=== PATIENT | female | born 1990 | race African-American/Black ===

== ENCOUNTER 2016-04-13 12:13 | Emergency (ER) | payer OTHER ==
--- NOTE | 2016-04-13 13:30 | PROVIDER DOCUMENTATION ---
HPI-Musculoskeletal Pain/Inj - GENERAL Chief Complaint: Extremity Injury Stated Complaint: ARM INJURY/ SOB Time Seen by Provider: 04/13/16 12:49 Source: patient - HX OF PRESENT ILLNESS-MUSKULOSKELTAL Nature of Presenting Problem: Pt is a 25 y/o F c chief complaint of L shoulder pain p wrestling c her brother. pt states that she felt a pop in her shoulder and had immediate pain with reduced ROM. Pt denies any loss of sensation. On arrival, pt is holding her L arm c her R hand and preventing it from moving. On arrival, pt is in minimal distress. Review of Systems - Adult - REVIEW OF SYSTEMS - ADULT Constitutional: reports: no symptoms reported. denies: chills, fatique Eyes: reports: no symptoms reported. denies: blurred vision, double vision Ears, Nose, Mouth & Throat: reports: no symptoms reported. denies: ear pain, nose pain, throat pain Cardiovascular: reports: no symptoms reported. denies: chest pain, orthopnea Respiratory: reports: no symptoms reported. denies: cough, shortness of breath Gastrointestinal: reports: no symptoms reported. denies: abdominal pain, nausea Genitourinary: reports: no symptoms reported. denies: dysuria, frequent UTI's Musculoskeletal: reports: no symptoms reported. denies: joint pain, joint swelling Integumentary: reports: no symptoms reported. denies: itching, rash Neurological: reports: no symptoms reported. denies: numbness, paresthesia Psychiatric: reports: no symptoms reported. denies: anxiety, emotional problems Endocrine: reports: no symptoms reported. denies: cold intolerance, heat intolerance Hematologic/Lymphatic: reports: no symptoms reported. denies: blood clots, low blood count Allergic/Immunologic: reports: no symptoms reported. denies: allergic reactions , eczema All Other Systems: Reviewed and Negative Past History - Adult - PAST MEDICAL HISTORY-ADULT Review of Records: reports: Old Records Reviewed, Nursing Assessment Review, Medications Reviewed, Social history reviewed & non-contributory. Major Childhood Illnesses: reports: denies history Cardiovascular: reports: denies history Respiratory: reports: asthma Gastrointestinal: reports: denies history Obstetrical/Gynecological: reports: PID/STD (herpes), other ( 09/2014) Genitourinary: reports: denies history Musculoskeletal: reports: denies history Neurological: reports: Seizures/Epilepsy. 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) Endocrine/Immune: reports: denies history Other Conditions: reports: denies history - PRIOR SURGERIES/PROCEDURES Surgical/Procedure History: reports: , other (Barthalian cyst removal) - IMMUNIZATION STATUS Childhood Immunizations: See Nurse Assessment Flu Vaccine: See Nurse Assessment - FAMILY HISTORY Family History: reviewed, not pertinent - SOCIAL HISTORY Smoking: denies Substance Use: none/never Alcohol Use Frequency: never Living Situation: family Physical Exam-Injury Related - Physical Exam-Injury Related Initial Vital Signs Reviewed: Yes General Appearance: appears well, alert, no apparent distress Eyes: PERRL/EOMI, pink conjunctivae Head, Ears, Nose, Mouth & Throat: normocephalic/atraumatic, moist mucous membranes, normal ENT inspection Neck: non-tender, full range of motion, supple Respiratory: chest non-tender, lungs clear, normal breath sounds Cardiovascular: normal peripheral pulses, regular rate, rhythm, no edema Chest/Breast: deferred Abdominal Exam: normal bowel sounds, non tender, soft Lymphatic: no adenopathy Back Exam: normal inspection, no CVA tenderness, no vertebral tenderness Extremity: tenderness (L shoulder - pain with supination, tenderness on palpation of the bicepital groove) Integumentary: normal color, warm/dry Neurologic: grossly normal, no motor/sensory deficits Psych/Mental Status: normal mood/affect, normal thought content, normal thought process, oriented x 3 - Glascow Coma Score Best Eye Response (Cooper): (4) open spontaneously Best Verbal Response (Cooper): (5) oriented Best Motor Response (Cooper): (6) obeys commands Progress - PLAN OF CARE/RESULTS Progress/Plan/Lab Results: Orders Category Date Time Status ED: Urine Bedside ORDERED Care 04/13/16 12:37 Active Shoulder Immobilizer DIRECTED Care 04/13/16 13:24 Active TRAUMA SHOULDER LEFT [RAD] Stat Exams 04/13/16 12:37 Completed Vital Signs - 24 hr 04/13/16 04/13/16 12:21 14:17 Temperature 98.5 F Pulse Rate 86 62 Respiratory 20 16 Rate Blood Pressure 114/62 128/86 O2 Sat by Pulse 100 98 Oximetry Departure - Departure Time of Disposition Order: 13:24 DIAGNOSIS: Rotator cuff injury Qualifiers: Encounter type: initial encounter Laterality: left Qualified Code(s): S46.002A - Unspecified injury of muscle(s) and tendon(s) of the rotator cuff of left shoulder, initial encounter Disposition: HOME 01 Certified Medical Emergency: Emergent Condition: Stable Additional Instructions: ED Follow Up Instructions: You have been treated by a care provider in the Emergency Department. These instructions are being provided to you so you can have an understanding of how to care for yourself upon discharge. Upon discharge from the Emergency Department, you are responsible for making arrangements for follow-up care by a physician of your choice. Take all prescribed medications as directed. Return to the Emergency Department immediately for any new or worsening symptoms. You may call the Physician Referral phone number at [phone] to obtain a list of Physicians who are taking new patients. Prescriptions: Ibuprofen [Motrin] 800 mg PO Q8H PRN PRN #20 tablet PRN Reason: inflammation Hydrocodone/APAP 7.5 mg/325 mg [[place]-7.5] 1 each PO Q6H PRN PRN #10 tablet PRN Reason: Pain Omeprazole [Prilosec] 20 mg PO DAILY@0700 #20 capsule Referrals: Hardy Wellington MD [Primary Care Provider] - Cat Parish MD [STAFF PHYSICIAN] - Call for Appoint. -1 week Forms: Return to School/Parent Work Instructions: Rotator Cuff Tendinitis Attestation - Physician/ QUINTON Attestation Patient care was provided by Advanced Practice Provider:: Yes Advanced Practice Provider:: Jackson Avelar Advanced Practice Provider documentation review:: The Mid-level provider documentation, treatment plan and medical decision making was reviewed by the physician who agrees with all treatment and medical decision making by the MLP.
--- NOTE | 2016-04-13 13:36 | Diag Imaging Result Document ---
PROCEDURE NAME: TRAUMA SHOULDER LEFT - 04/13/2016 LEFT SHOULDER 3 VIEWS INCLUDING AN AXILLARY Y VIEW: FINDINGS: No separation at the acromioclavicular joint. No fracture. No dislocation. IMPRESSION: No acute bony injury.
[2016-04-13 14:17] VITALS: BP 128/86
== END 2016-04-13 14:35 | disposition home or self-care (01) ==
LOC: ED 12:13
DX: S46.002A Unspecified injury of muscle(s) and tendon(s) of the rotator cuff of left shoulder, initial encounter (principal); M25.512 Pain in left shoulder; X58.XXXA Exposure to other specified factors, initial encounter